=== PATIENT | male | born 1995 | race Two or more races ===

== ENCOUNTER 2016-08-17 12:11 | Emergency (ER) ==
[~2016-08-17] VITALS: Ht 188 cm; Wt 88.5 kg
== END 2016-08-17 13:36 | disposition left against medical advice (07) ==
LOC: M ED 12:42
DX: M54.9 Dorsalgia, unspecified (principal); Z53.21 Procedure and treatment not carried out due to patient leaving prior to being seen by health care provider

== ENCOUNTER 2017-04-23 00:37 | Emergency (ER) | payer OTHER ==
[2017-04-23] MEDS: NAFCILLIN SOD IV (05:00)
[2017-04-23] MEDS: DILUENT IV (05:00)
== END 2017-04-23 06:24 | disposition home or self-care (01) ==
LOC: M ED 00:37
DX: L02.33 Carbuncle of buttock (principal); R23.4 Changes in skin texture; G89.29 Other chronic pain; M54.9 Dorsalgia, unspecified
CPT/HCPCS: S0032